=== PATIENT | female | born 1990 | race Caucasian/White ===

== ENCOUNTER 2017-06-12 19:30 | Inpatient (IN) | payer MEDICAID ==
[2017-06-12 20:13] LABS: APPEARANCE,URINE CLEAR; BILIRUBIN,URINE NEGATIVE (NEGATIVE); GLUCOSE, URINE NEGATIVE (NEGATIVE); KETONES,URINE NEGATIVE (NEGATIVE); LEUKOCYTE ESTERASE,URINE NEGATIVE (NEGATIVE); NITRITE,URINE NEGATIVE (NEGATIVE); PROTEIN,URINE NEGATIVE (NEGATIVE); URINE SPECIFIC GRAVITY 1.015; UROBILINOGEN,URINE NEGATIVE mg/dL (<2.0)
[2017-06-12 20:14] LABS: ABSOLUTE EOSINOPHILS # (AUTO) 0.1 10^3/uL (0.0-0.6); ABSOLUTE MONOCYTES (AUTO) 0.7 10^3/uL (0.1-1.4); ABSOLUTE NEUT (AUTO) 5.7 10^3/uL (1.7-8.2); BASOPHILS % (AUTO) 0.3 % (0-2); EOSINOPHILS % (AUTO) 0.8 % (0-6); HEMATOCRIT 36.5 % (36.0-47.0); HGB HCT DIFFERENCE -0.5; LYMPHOCYTES % (AUTO) 24.1 % (13-45); MEAN CORPUSCULAR HEMOGLOBIN 26.3 pg (27.0-33.4); MEAN CORPUSCULAR HGB CONC 32.8 g/dL (32.0-36.0); MEAN CORPUSCULAR VOLUME 80 fl (80-97); RED BLOOD COUNT 4.55 10^6/uL (3.72-5.28); RED CELL DISTRIBUTION WIDTH 18.3 % (11.5-14.0); SEGMENTED NEUTROPHILS % (AUTO) 66.8 % (42-78); WHITE BLOOD COUNT 8.5 10^3/uL (4.0-10.5)
[2017-06-12 20:28] LABS: URINE BARBITURATES SCREEN NEGATIVE; URINE METHADONE SCREEN NEGATIVE; URINE OPIATES LOW NEGATIVE; URINE PHENCYCLIDINE SCREEN NEGATIVE
[2017-06-12] MEDS ORDERED: DINOPROSTONE 10 MG VAGINAL INSERT.SR PV PRN (20:38)
[2017-06-12] MEDS ORDERED: RINGERS SOLUTION,LACTATED 300 ML IV ONE (20:38)
[2017-06-12] MEDS ORDERED: DINOPROSTONE 10 MG VAGINAL INSERT.SR ONE (20:55)
[2017-06-12] MEDS: RINGERS SOLUTION,LACTATED 1,000 ML IV PRN (21:07)
[2017-06-13] MEDS: RINGERS SOLUTION,LACTATED 1,000 ML IV PRN ×4 (08:02→20:43)
--- NOTE | 2017-06-13 11:04 | L&D Progress Notes ---
PROGRESS NOTES Datetime Report Generated by CPN: 06/13/2017 11:04 PROGRESS NOTE Impression Other: IUP @ [id number] Procedures: Sterile Vag Exam Plan: Continue Present Management; Cervical Ripening Informed Consent Obtained: Induction of Labor; Risks, Benefits and Alternatives Discussed Vital Signs : Reviewed; Within Normal Limits Comment: S: pt. reports very mild hip pressure but no cramping or contractions. Reports +FM, denies LOF/bleeding O: cervidil out, vss, cervix as stated, no contractions A: IUP @ 39w6d IOL for GDM A2-stable P:minimal change after 12hrs of cervidil, attempted morgan bulb insertion unsuccessfully, will give po 50mcg cytotec. Reviewed plan with Dr. Mckeon who is in unit and agrees with poc. Pt. agrees to plan, asked questions and verbalized understanding. VAGINAL EXAM Dilatation: FT Effacement: LONG Station: -3 Contractions: NONE FETUS A Monitoring: External US Decelerations: None SIGNATURE SIGNATURE: [id number] Assignment: Lyla Mckeon MD Signature: with User ID: [email or web address] : with User ID: [email or web address]
[2017-06-13] MEDS ORDERED: MISOPROSTOL 0.1 MG TABLET ONE (11:45)
[2017-06-13] MEDS ORDERED: MISOPROSTOL 0.2 MG TABLET PO ONE (12:30)
--- NOTE | 2017-06-13 15:10 | L&D Progress Notes ---
PROGRESS NOTES Datetime Report Generated by CPN: 06/13/2017 15:10 PROGRESS NOTE Impression: Normal Progression of Labor; Reassuring Heart Rate Procedures: Sterile Vag Exam Plan: Induction; Cervical Ripening Informed Consent Obtained: Vaginal Delivery; Induction of Labor Vital Signs : Reviewed; Within Normal Limits Comment: Here for IOL due to A2GDM. Cooks catheter placed 80ml/80ml. cvx 1/50/-3. Continue with IOL. Anticipate . Pt desires epidural when approp. Does not desire at this time. VAGINAL EXAM Dilatation: 1 Effacement: 50 Station: -3 Contractions: irreg q 2-6 MEMBRANES Membranes: Intact FETUS A FHR - Baseline: 150 Monitoring: External US Variability: Moderate 6-25bpm Accelerations: 15X15 Decelerations: None FHR Category: Category I FETUS C SIGNATURE: [id number] Signature: with User ID: Justin
[2017-06-13] MEDS ORDERED: OXYTOCIN/NORMAL SALINE 20 UNIT/1,000 ML RTUINJ ONE (15:13)
[2017-06-13] MEDS ORDERED: OXYTOCIN/NORMAL SALINE 20 UNIT/1,000 ML RTUINJ IV PRN (15:21)
--- NOTE | 2017-06-13 18:55 | L&D Progress Notes ---
PROGRESS NOTES Datetime Report Generated by CPN: 06/13/2017 18:55 PROGRESS NOTE Impression: Normal Progression of Labor; Reassuring Heart Rate Procedures: Artificial ROM; Sterile Vag Exam Plan: Continue Present Management; Induction Informed Consent Obtained: Vaginal Delivery; Risks, Benefits and Alternatives Discussed Vital Signs : Reviewed; Within Normal Limits Comment: Cooks catheter placed previously and pt now acking for pain medication. FB in vagina and almost of of cervix. 4-5cm. Cooks removed. AROM performed. head asynclytic. Will try some position changes and then plan for epidural REassuring FWB. Anticipate VAGINAL EXAM Dilatation: 4 Effacement: 75 Station: -3 MEMBRANES Membranes: Ruptured Amniotic Fluid Color: Clear FETUS A FHR - Baseline: 155 Monitoring: External US Variability: Moderate 6-25bpm FHR Category: Category I FETUS C SIGNATURE: [id number] Signature: with User ID: Justin
[2017-06-13] MEDS ORDERED: BUPIVACAINE HCL 0.25 % INJ/PF (2.5 MG/1 ML) 30 ML VIAL ONE (19:19)
[2017-06-13] MEDS ORDERED: EPHEDRINE SULFATE INJ 50 MG/1 ML AMPULE ONE (19:19)
[2017-06-13] MEDS ORDERED: FENTANYL/BUPIVACAINE/NS/PF 200 MCG/100 ML RTUINJ EPI ONE (19:19)
[2017-06-13] MEDS ORDERED: BUPIVACAINE HCL 0.25 % INJ/PF (2.5 MG/1 ML) 30 ML VIAL INFIL ONE ×2 (19:53→19:59)
[2017-06-13] MEDS ORDERED: BENZOIN/ALOE VERA/STORAX/TOLU TINCTURE 60 ML TP PRN ×2 (19:53→19:59)
[2017-06-13] MEDS ORDERED: DIPHENHYDRAMINE HCL 50 MG/ML VIAL IM PRN ×2 (19:53→19:59)
[2017-06-13] MEDS ORDERED: EPHEDRINE SULFATE INJ 50 MG/1 ML AMPULE IV PRN ×2 (19:53→19:59)
[2017-06-13] MEDS ORDERED: EPHEDRINE SULFATE INJ 50 MG/1 ML AMPULE IV ONE (19:59)
[2017-06-13] MEDS ORDERED: FENTANYL/BUPIVACAINE/NS/PF 200 MCG/100 ML RTUINJ EPI PRN (19:59)
[2017-06-13] MEDS ORDERED: DEXTROSE 5%-LACTATED RINGERS 1,000 ML IV PRN (23:02)
[2017-06-14] MEDS ORDERED: FENTANYL/BUPIVACAINE/NS/PF 200 MCG/100 ML RTUINJ EPI ONE (06:11)
[2017-06-14] MEDS ORDERED: LIDOCAINE 2% INJ-PF (20 MG/ML) 10 ML AMPUL ONE (06:11)
[2017-06-14] MEDS: FENTANYL/BUPIVACAINE/NS/PF 200 MCG/100 ML RTUINJ EPI PRN ×2 (06:49→11:38)
[2017-06-14] MEDS ORDERED: OXYTOCIN/NORMAL SALINE 0 UNIT/0 ML RTUINJ ONE (07:22)
[2017-06-14] MEDS ORDERED: MISOPROSTOL 0.2 MG TABLET ONE (07:22)
[2017-06-14] MEDS ORDERED: LIDOCAINE 1% INJ-PF (10 MG/ML) 30 ML SDV ONE (07:22)
[2017-06-14] MEDS ORDERED: MEASLES,MUMPS&RUBELLA VACC/PF 0.5 ML VIAL SUBCUT PRN (09:07)
[2017-06-14] MEDS ORDERED: ACETAMINOPHEN WITH CODEINE #3 TABLET PO PRN ×2 (09:07)
[2017-06-14] MEDS ORDERED: DIPH/PERTUSS(ACELL)/TETANUS VAC/PF 0.5 ML SYR (>=10YO) IM PRN (09:07)
[2017-06-14] MEDS ORDERED: DIBUCAINE 1% OINTMENT 28 GM TP PRN (09:07)
[2017-06-14] MEDS ORDERED: BENZOCAINE/MENTHOL AEROSOL SPRAY 56 ML TOP PRN (09:07)
[2017-06-14] MEDS ORDERED: OXYTOCIN/NORMAL SALINE 20 UNIT/1,000 ML RTUINJ IV PRN (09:07)
[2017-06-14] MEDS ORDERED: ZOLPIDEM TARTRATE 5 MG TABLET PO PRN (09:07)
[2017-06-14] MEDS ORDERED: FERROUS SULFATE 325 MG TABLET PO SCH (10:00)
--- NOTE | 2017-06-14 11:02 | Admission Physical ---
Datetime Report Generated by CPN: 06/14/2017 11:01 CURRENT ADMISSION Chief Complaint: Scheduled Induction of Labor Indication for Induction: Maternal Diabetes Indication for Induction: Term, Intrauterine ; No Active Labor; Induction of Labor Admit Plan: Admit to Unit; Initiate Labor Induction Protocol ALLERGIES Medication Allergies: No Medication Allergies: No Known Allergies (06/12/2017) Medication Allergies: No Known Allergies (02/12/2013) Latex: No Latex Allergies Food Allergies: Gluten OBSTETRICAL HISTORY EDC: 06/14/2017 00:00 : 1 Para: 0 Term: 0 : 0 SAB: 0 IAB: 0 Ectopic: 0 Livin Cesareans: 0 VBACs: 0 Multiple Births: 0 Gestational Diabetes: Yes Rh Sensitization: No Incompetent Cervix: No JULIAN: No Infertility: No ART Treatment: No Uterine Anomaly: No IUGR: No Hx Previous C/S: No Macrosomia: No Hx Loss/Stillborn: No PIH: No Hx : No Placenta Previa/Abruption: No Depression/PP Depression: No PTL/PROM: No Post Hemorrhage: No Current Procedures: Ultrasound; NST Obstetrical History Comments: G1-Current SEE RECORDS Alcohol: No Marijuana : No Cocaine: No Other Illicit Drugs: No Cigarettes: Never Smoker. [id number] MEDICAL HISTORY Diabetes: Yes Diabetes Type: Gestational Diabetes Blood Transfusion: No Pulmonary Disease (Asthma, TB): No Breast Disease: No Hypertension: Yes Medical Office Technologist Surgery: No Heart Disease: No Hosp/Surgery: Yes Autoimmune Disorder: No Anesthetic Complications: No Kidney Disease: No Abnormal Pap Smear: No Neuro/Epilepsy: No Psychiatric Disorders: No Other Medical Diseases: No Hepatitis/Liver Disease: No Significant Family History: No Varicosities/Phlebitis: No Trauma/Violence : No Thyroid Dysfunction: No Medical History Comments: Hx of HTN prior to this ; anemia; Gluten allergy; Depression; Back surgery-2011 INFECTIOUS HISTORY Gonorrhea: No Genital Herpes: No Chlamydia: No Tuberculosis: No Syphilis: No Hepatitis: No HIV/AIDS Exposure: No Rash or Viral Illness: No HPV: No PHYSICAL EXAM General: Normal HEENT: Normal Neurologic: Normal Thyroid: Normal Heart: Normal Lungs: Normal Breast: Deferred Back: Normal Abdomen: Normal Genitourinary Exam: Normal Extremities: Normal DTRs: Normal Pelvic Type: Adequate VAGINAL EXAM Dilatation: 4 Dilatation: 1 Dilatation: FT Effacement: 75 Effacement: 50 Effacement: LONG Station: -3 Station: -3 Station: -3 Contraction Comments: irreg q 2-6 Contraction Comments: NONE MEMBRANES Membranes: Ruptured Membranes: Intact Amniotic Fluid Color: Clear FETUS A EGA: 39.6 PLANS FOR LABOR AND DELIVERY Labor and Delivery: None Pain Management: Epidural Feeding Preference: Formula Benefit of Breast Feed Discussed: Yes Circumcision: Yes INFORMED CONSENT Informed Consent Obtained: Vaginal Delivery; Risks, Benefits and Alternatives Discussed Informed Consent Obtained: Vaginal Delivery; Induction of Labor Informed Consent Obtained: Induction of Labor; Risks, Benefits and Alternatives Discussed Signature: with User ID: [email or web address]
[2017-06-14] MEDS: PRENATAL VITAMIN W DHA CAPSULE PO SCH (11:46)
[2017-06-14] MEDS: SENNOSIDES/DOCUSATE 8.6-50 MG 1 EACH TABLET PO SCH (11:46)
[2017-06-14] MEDS: DOCUSATE SODIUM 100 MG CAPSULE PO SCH ×2 (11:47→17:46)
[2017-06-14] MEDS: IBUPROFEN 800 MG TABLET PO SCH ×2 (13:43→22:14)
--- NOTE | 2017-06-14 15:00 | PDOC DISCHARGE SUMMARY ---
Final Diagnosis - Final Diagnosis (1) Celiac disease Is this a current diagnosis for this admission?: Yes (2) Gestational diabetes mellitus (GDM) Is this a current diagnosis for this admission?: Yes (3) Spontaneous vaginal delivery Is this a current diagnosis for this admission?: Yes Discharge Data - Discharge Medication Home Medications: Vit/Iron Fum/Folic AC [ Tablet] 1 each PO DAILY 06/12/17 Docusate Sodium [Colace 100 mg Capsule] 100 mg PO BID #60 capsule 06/14/17 Ibuprofen [Motrin 800 mg Tablet] 800 mg PO Q8 #60 tablet 06/14/17 Gestational Age: 41.1 Reason(s) for Admission: Induction of Labor, Gestional Diabetes Procedures: NST Intrapartum Procedure(s): Spontaneous Vaginal Delivery - Data Baby 1 Male at 1 minute: 9 at 5 minutes: 9 Weight: 3.515 kg - Diagnosis Test Laboratory: Temp Pulse Resp BP Pulse Ox 98.3 F 109 H 18 129/82 H 97 06/14/17 11:45 06/14/17 11:45 06/14/17 11:45 06/14/17 11:45 06/14/17 11:45 06/12/17 06/12/17 19:40 19:50 RBC 4.55 Hgb 12.0 Hct 36.5 Urine Opiates Screen NEGATIVE - Discharge information/Instructions Discharge Activity: Activity As Tolerated, Pelvic Rest, No tub bath Discharge Diet: Regular Disposition: HOME, SELF-CARE Follow up with: [facility] in: 4, Weeks
[2017-06-15] MEDS: IBUPROFEN 800 MG TABLET PO SCH ×3 (06:28→21:37)
--- NOTE | 2017-06-15 07:53 | Delivery Summary ---
Del Sum A-C Datetime Report Generated by CPN: 06/15/2017 07:52 DELIVERY PERSONNEL DELIVERY PERSONNEL: [id number] Delivery Doctor:: Tabatha Marquez CNM Labor and Delivery Nurse:: Yaritza Lantigua RN Nursery Nurse:: GLORY HINKLE Tech/CONGRESSIONAL REPRESENTATIVE: NELLI MoranA II MATERNAL INFORMATION Delivery Anesthesia: Epidural Medications After Delivery: Pitocin Bolus-Please Comment; Pitocin Drip 20 Units/1000ml NSS Estimated Blood Loss (ml): 250 Maternal Complications: None Provider Comments: of viable male over intact perineium, head, shoulder and body delivered without difficulty, infant with spontaneous cry and respirations to maternal abdomen, cord clamped X2, infant cut free by pts support person, skin to skin, spontaneous delivery of placenta via ji mechanism, appears intact, 3vc, vagina and perineum inspected, 1st degress lac note repaired as above, good hemostasis acheived with external fudnal massage and IV pitocin routine pp care, mother and infant in stable condition. LABOR SUMMARY EDC: 06/14/2017 00:00 No. Babies in Womb: 1 Attempted: No Labor Anesthesia: Epidural LABOR INFORMATION Reason for Induction: Maternal Diabetes Onset of Labor: 06/14/2017 18:00 Complete Dilatation: 06/14/2017 07:15 Cervical Ripening Agents: Cervidil; Weller Balloon; Cytotec @ Oxytocin: Induction Group B Beta Strep: Negative Antibiotics # of Doses: 0 Steroids Given: None Reason Steroids Not Administered: Not Applicable MEMBRANES Membranes Rupture Method: Artificial Rupture of Membranes: 06/13/2017 18:48 Length of Rupture (hr): 13.88 Amniotic Fluid Color: Clear Amniotic Fluid Amount: Small Amniotic Fluid Odor: Normal STAGES OF LABOR Stage 1 hr: -10 Stage 1 min: -45 Stage 2 hr: 1 Stage 2 min: 26 Stage 3 hr: 0 Stage 3 min: 4 Total Time in Labor hr: -9 Total Time in Labor min: -15 VAGINAL DELIVERY Episiotomy: None Laceration Extension #1: First Degree Other Laceration: bilateral labial Laceration Repair: Not Applicable Laceration Repair Note: repaired with 2 single sutures with 3-0 chromic using epidural anesthesia Sponge Count Correct: N/A Sharps Count Correct: N/A CSECTION DELIVERY Primary Indication: N/A Secondary Indication: N/A Labor: N/A Elective: N/A CSection Incision: N/A BABY A INFORMATION Infant Delivery Date/Time: 06/14/2017 08:41 Infant Delivery Date/Time: 06/14/2017 08:41 Method of Delivery: Vaginal Born in Route : No : N/A Forceps: N/A Vacuum Extraction: N/A Shoulder Dystocia : No PRESENTATION/POSITION BABY A Presentation: Cephalic Presentation: Cephalic Presentation: Cephalic Cephalic Presentation: Vertex Breech Presentation: N/A PLACENTA INFORMATION BABY A Placenta Delivery Time : 06/14/2017 08:45 Placenta Method of Delivery: Spontaneous Placenta Status: Delivered SCORES BABY A Heart Rate 1 min: >100 bpm Resp Effort 1 min: Good Cry Reflex Irritability 1 min: Cough or Sneeze or Pulls Away Muscle Tone 1 min: Active Motion Color 1 min: Body [place], Extremities Blue Resuscitation Effort 1 min: Tactile Stimulation SCORE 1 MIN: 9 Heart Rate 5 min: >100 bpm Resp Effort 5 min: Good Cry Reflex Irritability 5 min: Cough or Sneeze or Pulls Away Muscle Tone 5 min: Active Motion Color 5 min: Body [place], Extremities Blue Resuscitation Effort 5 min: N/A SCORE 5 MIN: 9 INFORMATION BABY A Gestational Age at Delivery: 40.0 Gestational Status: Full Term- 39- 40.6 Weeks Infant Outcome : Liveborn Infant Outcome : Liveborn Infant Condition : Stable Condition : Stable Sex: Male Infant Sex: Male IDENTIFICATION BABY A Verification Date/Time: 06/14/2017 08:48 ID Band Number: [id number] Mother's Name Verified: Yes Infant RN Verifying : Brandon Keith, RN, and RMaxx Neal, RN WEIGHT/LENGTH BABY A Birthweight (gm): 3510 Weight (lb): 7 Weight (oz): 12 Infant Length (in): 21.00 Length (cm): 53.34 CORD INFORMATION BABY A No. Cord Vessels: 3 Nuchal Cord : N/A Cord Blood Taken: Yes-For Storage (Mom's Blood type +) Infant Suction: None ASSESSMENT BABY A Infant Complications: Multiple Variable Decels Infant Complications- Other: terminal meconium Physical Findings at Delivery: Caput Succedaneum; Molding of the Head Skin to Skin: Yes Skin to Skin: Yes Skin to Skin Time (min): 60 BABY B INFORMATION : N/A SIGNATURES Assignment: Jesus Manuel Mayen MD Signature: with User ID: [email or web address] : with User ID: [email or web address]
[2017-06-15] MEDS: DOCUSATE SODIUM 100 MG CAPSULE PO SCH ×2 (09:36→18:10)
[2017-06-15] MEDS: PRENATAL VITAMIN W DHA CAPSULE PO SCH (09:36)
[2017-06-15] MEDS: SENNOSIDES/DOCUSATE 8.6-50 MG 1 EACH TABLET PO SCH (09:36)
[2017-06-15] MEDS ORDERED: INFLUENZA ADLT QUAD (36MOS+) 2017-18 VAC 0.5 ML SYR IM PRN (11:43)
[2017-06-15 12:41] LABS: ABSOLUTE EOSINOPHILS # (AUTO) 0.2 10^3/uL (0.0-0.6); ABSOLUTE LYMPHOCYTES (AUTO) 2.1 10^3/uL (0.5-4.7); ABSOLUTE MONOCYTES (AUTO) 0.6 10^3/uL (0.1-1.4); ABSOLUTE NEUT (AUTO) 8.1 10^3/uL (1.7-8.2); BASOPHILS % (AUTO) 0.2 % (0-2); EOSINOPHILS % (AUTO) 1.8 % (0-6); HEMATOCRIT 32.2 % (36.0-47.0); HEMOGLOBIN 10.5 g/dL (12.0-15.5); HGB HCT DIFFERENCE -0.7; LYMPHOCYTES % (AUTO) 19.3 % (13-45); MEAN CORPUSCULAR HEMOGLOBIN 26.4 pg (27.0-33.4); MEAN CORPUSCULAR HGB CONC 32.5 g/dL (32.0-36.0); MEAN CORPUSCULAR VOLUME 81 fl (80-97); MONOCYTES % (AUTO) 5.5 % (3-13); RED BLOOD COUNT 3.96 10^6/uL (3.72-5.28); SEGMENTED NEUTROPHILS % (AUTO) 73.2 % (42-78)
--- NOTE | 2017-06-15 14:31 | PDOC PROGRESS REPORT ---
Subjective-OB Subjective: Post Delivery Day: 27 year old. Denies any needs at this time. Pt doing well, no concerns. She reports light bleeding, regular diet and voiding without difficulty. Physical Exam (OB) Vital Signs: Temp Pulse Resp BP Pulse Ox 98.0 F 96 15 116/78 98 06/15/17 08:19 06/15/17 08:19 06/15/17 08:19 06/15/17 08:19 06/15/17 08:19 Intake & Output 06/14/17 06/15/17 06/16/17 06:59 06:59 06:59 Intake Total 10 Balance 10 Baby 1 Male 3.515 kg - Lochia Lochia Amount: Small 10-25 ml Lochia Color: Rubra/Red - Abdomen Description: Soft Hernia Present: No Fundal Description: Firm, Midline Fundal Height: u/u - u/2 Objective-Diagnostic Laboratory: 06/15/17 12:14 06/12/17 19:50 06/15/17 12:14 WBC 11.0 H RBC 3.96 Hgb 10.5 L Hct 32.2 L MCV 81 MCH 26.4 L MCHC 32.5 RDW 19.0 H Plt Count 257 Seg Neutrophils % 73.2 Lymphocytes % 19.3 Monocytes % 5.5 Eosinophils % 1.8 Basophils % 0.2 Absolute Neutrophils 8.1 Absolute Lymphocytes 2.1 Absolute Monocytes 0.6 Absolute Eosinophils 0.2 Absolute Basophils 0.0 Assessment and Plan(PN) - Assessment and Plan (1) Gestational diabetes mellitus (GDM) Qualifiers: Gestational diabetes mellitus control: diet-controlled Trimester: unspecified trimester Qualified Code(s): O24.410 - Gestational diabetes mellitus in , diet controlled Is this a current diagnosis for this admission?: Yes (2) Spontaneous vaginal delivery Is this a current diagnosis for this admission?: Yes - Time Spent with Patient Time with patient: Less than 15 minutes Medications reviewed and adjusted accordingly: Yes - Disposition Anticipated Discharge: Home Within: within 24 hours
[2017-06-16] MEDS: IBUPROFEN 800 MG TABLET PO SCH (05:37)
--- NOTE | 2017-06-16 09:48 | PDOC PROGRESS REPORT ---
Subjective-OB Subjective: Post Delivery Day: 27 year old. Denies any needs at this time Doing well, ready to go home, bottle feeding, voiding Physical Exam (OB) Vital Signs: Temp Pulse Resp BP Pulse Ox 98.3 F 86 15 102/60 100 06/16/17 07:38 06/16/17 07:38 06/16/17 07:38 06/16/17 07:38 06/16/17 07:38 Intake & Output 06/15/17 06/16/17 06/17/17 06:59 06:59 06:59 Intake Total 10 Balance 10 Baby 1 Male 3.515 kg - PIH/Pre-Eclampsia DTR's: 1 + Clonus: Negative Headache: Absent Epigastric Pain: No Visual Changes: No - Lochia Lochia Amount: Scant < 10 ml Lochia Color: Rubra/Red - Abdomen Description: Soft, Round Hernia Present: No Fundal Description: Firm, Midline Fundal Height: u/u - u/2 Objective-Diagnostic Laboratory: 06/15/17 12:14 06/12/17 19:50 06/15/17 12:14 WBC 11.0 H RBC 3.96 Hgb 10.5 L Hct 32.2 L MCV 81 MCH 26.4 L MCHC 32.5 RDW 19.0 H Plt Count 257 Seg Neutrophils % 73.2 Lymphocytes % 19.3 Monocytes % 5.5 Eosinophils % 1.8 Basophils % 0.2 Absolute Neutrophils 8.1 Absolute Lymphocytes 2.1 Absolute Monocytes 0.6 Absolute Eosinophils 0.2 Absolute Basophils 0.0 Assessment and Plan(PN) - Assessment and Plan (1) Spontaneous vaginal delivery Is this a current diagnosis for this admission?: Yes (2) Celiac disease Is this a current diagnosis for this admission?: Yes (3) Gestational diabetes mellitus (GDM) Qualifiers: Gestational diabetes mellitus control: diet-controlled Trimester: unspecified trimester Qualified Code(s): O24.410 - Gestational diabetes mellitus in , diet controlled Is this a current diagnosis for this admission?: Yes - Time Spent with Patient Medications reviewed and adjusted accordingly: Yes - Disposition Anticipated Discharge: Home Within: Other - home today
--- NOTE | 2017-06-16 09:51 | PDOC DISCHARGE SUMMARY ---
Final Diagnosis Discharge Date: 06/16/17 - Final Diagnosis (1) Spontaneous vaginal delivery Is this a current diagnosis for this admission?: Yes (2) Celiac disease Is this a current diagnosis for this admission?: Yes (3) Gestational diabetes mellitus (GDM) Is this a current diagnosis for this admission?: Yes Discharge Data - Discharge Medication Home Medications: Vit/Iron Fum/Folic AC [ Tablet] 1 each PO DAILY 06/12/17 Docusate Sodium [Colace 100 mg Capsule] 100 mg PO BID #60 capsule 06/14/17 Ibuprofen [Motrin 800 mg Tablet] 800 mg PO Q8 #60 tablet 06/14/17 Gestational Age: 40 Reason(s) for Admission: Onset of Labor, Induction of Labor, Gestional Diabetes Procedures: NST, Ultrasound Intrapartum Procedure(s): Spontaneous Vaginal Delivery Complication(s): Laceration-Labial Laceration-Degree: 1st - Data Baby 1 Male at 1 minute: 9 at 5 minutes: 9 Weight: 3.515 kg Home with Mother: Yes Complications: No - Diagnosis Test Laboratory: Temp Pulse Resp BP Pulse Ox 98.3 F 86 15 102/60 100 06/16/17 07:38 06/16/17 07:38 06/16/17 07:38 06/16/17 07:38 06/16/17 07:38 06/12/17 06/12/17 06/15/17 19:40 19:50 12:14 RBC 4.55 3.96 Hgb 12.0 10.5 L Hct 36.5 32.2 L Urine Opiates Screen NEGATIVE - Discharge information/Instructions Discharge Activity: Activity As Tolerated, No Lifting Over 10 Pounds, Pelvic Rest, No tub bath Discharge Diet: As Tolerated, Regular Disposition: HOME, SELF-CARE Follow up with: [facility] in: 4, Weeks
[2017-06-16] MEDS: DOCUSATE SODIUM 100 MG CAPSULE PO SCH (10:03)
[2017-06-16] MEDS: PRENATAL VITAMIN W DHA CAPSULE PO SCH (10:04)
[2017-06-16] MEDS: SENNOSIDES/DOCUSATE 8.6-50 MG 1 EACH TABLET PO SCH (10:04)
[2017-06-16 10:51] VITALS: BP 107/70
== END 2017-06-16 12:35 | disposition home or self-care (01) | DRG 775 ==
LOC: LR 19:30 → 2S 06-14 11:00
PROVIDERS: ADMIT Obstetrics & Gynecology Gynecology; ATTEND Obstetrics & Gynecology Gynecology
PROC: 4A1HXCZ Monitoring of Products of Conception, Cardiac Rate, External Approach (ICD-10-PCS; 2017-06-12)
PROC: 10907ZC Drainage of Amniotic Fluid, Therapeutic from Products of Conception, Via Natural or Artificial Opening (ICD-10-PCS; 2017-06-13)
PROC: 0U7C7ZZ Dilation of Cervix, Via Natural or Artificial Opening (ICD-10-PCS; 2017-06-13)
PROC: 10E0XZZ Delivery of Products of Conception, External Approach (ICD-10-PCS; principal; 2017-06-14)
PROC: 0HQ9XZZ Repair Perineum Skin, External Approach (ICD-10-PCS; 2017-06-14)
PROC: 10E0XZZ Delivery of Products of Conception, External Approach (ICD-10-PCS; 2017-06-14)
PROC: 0HQ9XZZ Repair Perineum Skin, External Approach (ICD-10-PCS; 2017-06-14)
PROC: 3E0234Z Introduction of Serum, Toxoid and Vaccine into Muscle, Percutaneous Approach (ICD-10-PCS; 2017-06-16)
DX: O24.420 Gestational diabetes mellitus in childbirth, diet controlled (principal); O76 Abnormality in fetal heart rate and rhythm complicating labor and delivery; O77.0 Labor and delivery complicated by meconium in amniotic fluid; O70.0 First degree perineal laceration during delivery; K90.0 Celiac disease; O16.4 Unspecified maternal hypertension, complicating childbirth; O99.02 Anemia complicating childbirth; O99.62 Diseases of the digestive system complicating childbirth; Z37.0 Single live birth; Z3A.40 40 weeks gestation of pregnancy; D64.9 Anemia, unspecified; Z23 Encounter for immunization; Z91.018 Allergy to other foods
CPT/HCPCS: 36415; 80307; 81005; 82947; 82962; 85025; 86592; 86850; 86900; 86901; 90715; C1726; J2590; J3490

== ENCOUNTER → 2019-01-22 | Outpatient (CLI) | payer MEDICAID ==
[2019-01-22 17:56] LABS: ABSOLUTE EOSINOPHILS # (AUTO) 0.1 10^3/uL (0.0-0.6); ABSOLUTE LYMPHOCYTES (AUTO) 2.3 10^3/uL (0.5-4.7); ABSOLUTE MONOCYTES (AUTO) 0.6 10^3/uL (0.1-1.4); ABSOLUTE NEUT (AUTO) 5.8 10^3/uL (1.7-8.2); BASOPHILS % (AUTO) 0.3 % (0-2); EOSINOPHILS % (AUTO) 0.8 % (0-6); HEMATOCRIT 26.1 % (36.0-47.0); HEMOGLOBIN 8.1 g/dL (12.0-15.5); LYMPHOCYTES % (AUTO) 25.7 % (13-45); MEAN CORPUSCULAR HEMOGLOBIN 21.2 pg (27.0-33.4); MEAN CORPUSCULAR HGB CONC 31.2 g/dL (32.0-36.0); MEAN CORPUSCULAR VOLUME 68 fl (80-97); MONOCYTES % (AUTO) 6.6 % (3-13); PLATELET COUNT 267 10^3/uL (150-450); RED BLOOD COUNT 3.84 10^6/uL (3.72-5.28); RED CELL DISTRIBUTION WIDTH 17.6 % (11.5-14.0); SEGMENTED NEUTROPHILS % (AUTO) 66.6 % (42-78); TOTAL CELLS COUNTED % (AUTO) 100 %; WHITE BLOOD COUNT 8.8 10^3/uL (4.0-10.5)
[2019-01-22 18:53] LABS: FERRITIN 8.96 ng/mL (6.2-137.0)
[2019-01-22 19:29] LABS: IRON(TIBC) < 10.1 ug/dL (37-170)
== END ==
LOC: OD 16:32
PROVIDERS: ATTEND Obstetrics & Gynecology
DX: D64.9 Anemia, unspecified (principal); O99.013 Anemia complicating pregnancy, third trimester; Z3A.00 Weeks of gestation of pregnancy not specified
CPT/HCPCS: 36415; 82607; 82728; 82746; 83540; 83550; 85025

== ENCOUNTER 2019-02-19 14:25 | Inpatient (IN) | payer MEDICAID ==
[~2019-02-19 14:25] MED LIST: DEXAMETHASONE SOD PHOSPHATE INJ 4 MG/1 ML VIAL ONE; KETOROLAC TROMETHAMINE 60 MG/2 ML SDV ONE; METOCLOPRAMIDE HCL INJ/PF 10 MG/2 ML SDV ONE; ONDANSETRON HCL INJ/PF 4 MG/2 ML SDV ONE; PHENYLEPHRINE HCL INJ/PF 10 MG/1 ML SDV ONE; ROCURONIUM BROMIDE INJ 50 MG/5 ML VIAL IV ONE; SUCCINYLCHOLINE CHLORIDE INJ 200 MG/10 ML VIAL ONE
[2019-02-19] MEDS ORDERED: CEFAZOLIN 2 GM/D5W RTU 50 ML IV ONE (14:45)
[2019-02-19] MEDS ORDERED: RINGERS SOLUTION,LACTATED 1,000 ML IV ONE (14:45)
[2019-02-19] MEDS ORDERED: RINGERS SOLUTION,LACTATED 1,000 ML IV PRN ×2 (14:45→17:58)
[2019-02-19] MEDS ORDERED: CEFAZOLIN SODIUM 2 GM in DEXTROSE 5%-WATER 100 ML IV ONE (15:15)
[2019-02-19] MEDS ORDERED: EPHEDRINE SULFATE INJ 50 MG/1 ML AMPULE ONE (16:20)
[2019-02-19] MEDS ORDERED: OXYTOCIN 10 UNIT/ML VIAL ONE (16:21)
[2019-02-19] MEDS ORDERED: MIDAZOLAM 2 MG/2 ML INJ ONE (16:21)
[2019-02-19] MEDS ORDERED: FENTANYL CITRATE INJ/PF 100 MCG/2 ML AMPUL ONE ×2 (16:21→18:16)
[2019-02-19] MEDS ORDERED: CEFAZOLIN 1 GM/D5W RTU 2 GM/100 ML RTUPB IV ONE (16:47)
[2019-02-19] MEDS ORDERED: CITRIC ACID/SODIUM CITRATE ORAL SOLN 15 ML UDCUP ONE (16:47)
--- NOTE | 2019-02-19 16:49 | Admission Physical ---
Datetime Report Generated by CPN: 02/19/2019 16:48 CURRENT ADMISSION Chief Complaint: Uterine Contractions Chief Complaint Other: transverse lie Indication for Induction: Not Applicable Admit Impression : Term, Intrauterine ; Active Labor Admit Plan: Admit to Unit; Initiate Section Protocol ALLERGIES Medication Allergies: No Medication Allergies: No Known Allergies (06/12/2017) Latex: No Latex Allergies OBSTETRICAL HISTORY EDC: 02/18/2019 00:00 : 2 Para: 1 Livin SEE RECORDS Alcohol: No Marijuana : No Cocaine: No Other Illicit Drugs: No Cigarettes: Never Smoker. [id number] PHYSICAL EXAM General: Normal HEENT: Normal Neurologic: Normal Thyroid: Normal Heart: Normal Lungs: Normal Breast: Deferred Back: Normal Abdomen: Normal Genitourinary Exam: Normal Extremities: Normal DTRs: Normal Pelvic Type: Adequate Vital Signs: Reviewed VAGINAL EXAM Dilatation: 4 Effacement: 100 Station: 0 MEMBRANES Pooling: Positive Membranes: Ruptured FETUS A EGA: 40.1 FHR- Baseline: 140 Variability: Moderate 6-25bpm FHR Category: Category I Presentation: Transverse Admit Comment: proceed with a c section INFORMED CONSENT Signature: with User ID: [email or web address]
[2019-02-19] MEDS ORDERED: MORPHINE SULFATE 10 MG/ML INJ IV PRN (17:16)
[2019-02-19] MEDS ORDERED: DIPHENHYDRAMINE HCL 50 MG/ML VIAL IV PRN (17:16)
[2019-02-19] MEDS ORDERED: MEPERIDINE HCL/PF INJ 25 MG/1 ML DISP.SYRIN IV PRN (17:16)
[2019-02-19] MEDS ORDERED: FENTANYL CITRATE INJ/PF 100 MCG/2 ML AMPUL IV PRN ×3 (17:16)
[2019-02-19] MEDS ORDERED: ONDANSETRON HCL INJ/PF 4 MG/2 ML SDV IV PRN (17:16)
[2019-02-19] MEDS ORDERED: PROMETHAZINE HCL INJ 25 MG/1 ML VIAL IV PRN ×3 (17:16→17:58)
[2019-02-19 17:35] LABS: HEMATOCRIT 26.6 % (36.0-47.0); HEMOGLOBIN 8.2 g/dL (12.0-15.5); MEAN CORPUSCULAR HEMOGLOBIN 20.6 pg (27.0-33.4); MEAN CORPUSCULAR HGB CONC 30.6 g/dL (32.0-36.0); MEAN CORPUSCULAR VOLUME 67 fl (80-97); PLATELET COUNT 300 10^3/uL (150-450); RED BLOOD COUNT 3.97 10^6/uL (3.72-5.28); RED CELL DISTRIBUTION WIDTH 19.1 % (11.5-14.0); WHITE BLOOD COUNT 12.1 10^3/uL (4.0-10.5)
[2019-02-19 17:48] LABS: ABSOLUTE LYMPHOCYTES# (MANUAL) 1.6 10^3/uL (0.5-4.7); ABSOLUTE MONOCYTES # (MANUAL) 0.4 10^3/uL (0.1-1.4); BASOPHILS % (MANUAL) 1 % (0-2); EOSINOPHILS % (MANUAL) 0 % (0-6); LYMPHOCYTES % (MANUAL) 13 % (13-45); MONOCYTES % (MANUAL) 3 % (3-13); NUCLEATED RED BLOOD CELLS 2 /100 WBC (0); SEGMENTED NEUTROPHILS % (MAN) 83 % (42-78); TOTAL CELLS COUNTED 100
[2019-02-19 17:50] LABS: ANISOCYTOSIS 2+; HYPOCHROMASIA 1+; OVALOCYTES SLIGHT; POIKILOCYTOSIS 1+; POLYCHROMASIA 1+; SCHISTOCYTES SLIGHT; TOXIC GRANULATION 1+
[2019-02-19 17:51] LABS: PLATELET COMMENT ADEQUATE; PLATELET LARGE PRESENT; TEAR DROP CELLS SLIGHT
[2019-02-19] MEDS ORDERED: ACETAMINOPHEN 325 MG TABLET PO PRN (17:58)
[2019-02-19] MEDS ORDERED: MEASLES,MUMPS&RUBELLA VACC/PF 0.5 ML VIAL SUBCUT PRN (17:58)
[2019-02-19] MEDS ORDERED: HYDROMORPHONE HCL INJ/PF 2 MG/ML AMPULE IV PRN (17:58)
[2019-02-19] MEDS ORDERED: OXYTOCIN/NORMAL SALINE 1,000 ML IV PRN (17:58)
[2019-02-19] MEDS ORDERED: DIPH/PERTUSS(ACELL)/TETANUS VAC/PF 0.5 ML SYR (>=10YO) IM PRN (17:58)
[2019-02-19] MEDS ORDERED: ACETAMINOPHEN 100 ML IV PRN (17:58)
[2019-02-19] MEDS ORDERED: OXYCODONE-ACETAMINOPHEN 5-325 MG TABLET PO PRN (17:58)
[2019-02-19] MEDS ORDERED: SIMETHICONE 80 MG TAB.CHEW PO PRN (17:58)
[2019-02-19] MEDS ORDERED: ACETAMINOPHEN 1,000 MG/100 ML RTUPB IV ONE (18:02)
[2019-02-19] MEDS ORDERED: HYDROMORPHONE HCL INJ/PF 2 MG/ML AMPULE ONE (18:02)
--- NOTE | 2019-02-19 18:07 | Operative Report ---
Operative Report DATE OF SURGERY: 02/19/19 PREOPERATIVE DIAGNOSIS: Patient in labor with rupture membranes non-vertex pres entation POSTOPERATIVE DIAGNOSIS: Same with presentation of double footling breech and one hand OPERATION: Primary classical done because of the low uterine segment was not well-developed SURGEON: EMMY CAMPOVERDE ANESTHESIA: GA TISSUE REMOVED OR ALTERED: Placenta COMPLICATIONS: None ESTIMATED BLOOD LOSS: 500 cc INTRAOPERATIVE FINDINGS: Viable baby with double footling breech and hand pres entation PROCEDURE: Patient was taken to the OR and placed in supine position. She is prepared and draped in sterile fashion. Weller was placed for drainage of the bladder. General anesthesia was induced. Low transverse incision was made and carried down the level of the fascia. The fascial incision was made with knife and extended bilaterally with curved Landaverde scissors. The fascia was off the rectus muscles using sharp and blunt dissection. The rectus muscles are in the midline. The peritoneum was entered without incident. Bladder blade was placed in uterine segment was identified. The low uterine segment was not developed and was quite narrow which would not allow delivery of the baby. Therefore a vertical classical was made. This was extended with the bandage scissors. The baby was delivered with some fundal pressure. The presenting parts were both feet and hand. Mouth and nose were suctioned free. The cord is doubly clamped and cut. Baby is passed off to the airport guide in attendance. The placenta was manually extracted with trailing membranes. The uterus was externalized wrapped in a moist lap sponge. Uterine contents wiped free. The uterus was closed with a running locked 0 chromic suture. The myometrium was closed with interrupted 0 chromic sutures. The remainder of the incision was closed with a running 0 chromic suture. This closed the uterus well and good hemostasis was noted. Interceed was placed over top of the incision. The pelvis was irrigated and suctioned free of fluid the uterus was replaced in the abdomen. The abdominal wall peritoneum was closed with running 2-0 chromic stitch. Fascia was closed with a running 0 Vicryl in 2 segments. Lul's layer was brought together with 0 plain gut stitch and the skin was closed with running subcuticular 4-0 undyed Vicryl stitch. The wound was dressed mother and baby did well.
--- NOTE | 2019-02-19 19:43 | Delivery Summary ---
Del Sum A-C Datetime Report Generated by CPN: 02/19/2019 19:43 DELIVERY PERSONNEL DELIVERY PERSONNEL: [id number] Delivery Doctor:: Jesus Manuel Mayen MD Anesthesiologist:: Chu Covington MD CLAIMS ADJUSTER CROP:: Jennifer Esquivel, CLAIMS ADJUSTER CROP Labor and Delivery Nurse:: Cheli Starks RN Public Safety Police:: Cheli Starks RN Nursery Nurse:: Winnie Barnes RN Experimental Preflight Mechanic/UPFITTER: Breanne Shore CST Experimental Preflight Mechanic/UPFITTER: Jillianaracely Stubbs, ST MATERNAL INFORMATION Delivery Anesthesia: General Medications After Delivery: Pitocin Bolus-Please Comment Meds After Delivery Comment: Pitocin 20 units in 1 L NS bolusing per order Estimated Blood Loss (ml): 550 Delivery QBL: 1400 Delivery QBL Comment: 300 in suction canister Maternal Complications: Other Complication Details: double footling breech with hand presentation LABOR SUMMARY EDC: 02/18/2019 00:00 No. Babies in Womb: 1 Attempted: No Labor Anesthesia: None LABOR INFORMATION Reason for Induction: Not Applicable Oxytocin: N/A Group B Beta Strep: negative Antibiotics # of Doses: 1 Antibiotics Time of Last Dose: 165 Name of Antibiotic Given: Ancef Steroids Given: None Reason Steroids Not Administered: Not Applicable MEMBRANES Membranes Rupture Method: Artificial Rupture of Membranes: 02/19/2019 17:00 Length of Rupture (hr): 0.03 Amniotic Fluid Color: Clear Amniotic Fluid Amount: Scant Amniotic Fluid Odor: Normal STAGES OF LABOR Stage 3 hr: 0 Stage 3 min: 1 VAGINAL DELIVERY Episiotomy: None Laceration #1: None Laceration Extension #1: N/A CSECTION DELIVERY Primary Indication: Other Other Primary Indication: breech/hamnd presentation Other Secondary Indication: oligohydramnios CSection Urgency: Emergency CSection Incidence: Primary Labor: Labor Elective: Nonelective CSection Incision: Lower Uterine Transverse BABY A INFORMATION Delivery Date/Time: 02/19/2019 17:02 Method of Delivery: Born in Route : No : N/A Forceps: N/A Vacuum Extraction: N/A Shoulder Dystocia : No PRESENTATION/POSITION BABY A Presentation: Unable to Assess Cephalic Presentation: N/A Breech Presentation: N/A PLACENTA INFORMATION BABY A Placenta Delivery Time : 02/19/2019 17:03 Placenta Method of Delivery: Expressed Placenta Status: Delivered SCORES BABY A Heart Rate 1 min: >100 bpm Resp Effort 1 min: Good Cry Reflex Irritability 1 min: Cough or Sneeze or Pulls Away Muscle Tone 1 min: Active Motion Color 1 min: Blue/Pale Resuscitation Effort 1 min: Tactile Stimulation SCORE 1 MIN: 8 Heart Rate 5 min: >100 bpm Resp Effort 5 min: Good Cry Reflex Irritability 5 min: Cough or Sneeze or Pulls Away Muscle Tone 5 min: Active Motion Color 5 min: Body [place], Extremities Blue SCORE 5 MIN: 9 INFANT INFORMATION BABY A Gestational Age at Delivery: 40.1 Gestational Status: Full Term- 39- 40.6 Weeks Outcome : Liveborn Condition : Stable Sex: Male IDENTIFICATION BABY A Verification Date/Time: 02/19/2019 17:11 ID Band Number: [id number] Mother's Name Verified: Yes Infant RN Verifying : Reji Starks, RN, C. [place], RN WEIGHT/LENGTH BABY A Infant Birthweight (gm): 3185 Weight (lb): 7 Weight (oz): 0 Length (in): 20.00 Infant Length (cm): 50.80 CORD INFORMATION BABY A No. Cord Vessels: 3 Infant Suction: Mouth; Nose ASSESSMENT BABY A Complications: Extended Tachycardia Physical Findings at Delivery: Within Normal Limits Respirations: Appears Normal Skin to Skin: No Care By: Shmuel Barnes, GLORY Transferred To: Nursery BABY B INFORMATION : N/A
[2019-02-19] MEDS ORDERED: PROPOFOL INJ 200 MG/20 ML VIAL IV ONE (20:12)
[2019-02-19 21:46] LABS: HEMATOCRIT 23.5 % (36.0-47.0); MEAN CORPUSCULAR HEMOGLOBIN 20.7 pg (27.0-33.4); MEAN CORPUSCULAR HGB CONC 30.7 g/dL (32.0-36.0); MEAN CORPUSCULAR VOLUME 67 fl (80-97); PLATELET COUNT 290 10^3/uL (150-450); RED CELL DISTRIBUTION WIDTH 19.5 % (11.5-14.0); WHITE BLOOD COUNT 21.3 10^3/uL (4.0-10.5)
[2019-02-19 21:50] LABS: HEMOGLOBIN 7.2 g/dL (12.0-15.5)
[2019-02-19] MEDS: KETOROLAC TROMETHAMINE INJ/PF 30 MG/1 ML SDV IV SCH (22:02)
[2019-02-19 22:11] LABS: ABSOLUTE LYMPHOCYTES# (MANUAL) 1.7 10^3/uL (0.5-4.7); ABSOLUTE MONOCYTES # (MANUAL) 0.9 10^3/uL (0.1-1.4); BAND NEUTROPHILS % (MANUAL) 6 % (3-5); BASOPHILS % (MANUAL) 0 % (0-2); EOSINOPHILS % (MANUAL) 0 % (0-6); LYMPHOCYTES % (MANUAL) 8 % (13-45); METAMYELOCYTES % (MANUAL) 2 % (0); MONOCYTES % (MANUAL) 4 % (3-13); SEGMENTED NEUTROPHILS % (MAN) 80 % (42-78); TOTAL CELLS COUNTED 100
[2019-02-19 22:12] LABS: ANISOCYTOSIS 2+; HYPOCHROMASIA 3+
[2019-02-19 22:13] LABS: PLATELET COMMENT ADEQUATE
[2019-02-20] MEDS: DOCUSATE SODIUM 100 MG CAPSULE PO SCH ×3 (01:48→18:01)
[2019-02-20 02:04] LABS: APPEARANCE,URINE CLEAR; BILIRUBIN,URINE NEGATIVE (NEGATIVE); COLOR,URINE STRAW; GLUCOSE, URINE >=500 mg/dL (NEGATIVE); KETONES,URINE NEGATIVE (NEGATIVE); LEUKOCYTE ESTERASE,URINE NEGATIVE (NEGATIVE); NITRITE,URINE NEGATIVE (NEGATIVE); PROTEIN,URINE NEGATIVE (NEGATIVE); URINE SPECIFIC GRAVITY 1.011; UROBILINOGEN,URINE NEGATIVE mg/dL (<2.0)
[2019-02-20 02:26] LABS: URINE AMPHETAMINES SCREEN NEGATIVE; URINE BARBITURATES SCREEN NEGATIVE; URINE BENZODIAZEPINES SCREEN UNCONFIRMED POSITIVE; URINE COCAINE SCREEN NEGATIVE; URINE MARIJUANA (THC) SCREEN NEGATIVE; URINE METHADONE SCREEN NEGATIVE; URINE PHENCYCLIDINE SCREEN NEGATIVE
[2019-02-20] MEDS: KETOROLAC TROMETHAMINE INJ/PF 30 MG/1 ML SDV IV SCH (05:11)
[2019-02-20 07:34] LABS: HEMATOCRIT 20.6 % (36.0-47.0); MEAN CORPUSCULAR HEMOGLOBIN 20.2 pg (27.0-33.4); MEAN CORPUSCULAR HGB CONC 30.1 g/dL (32.0-36.0); MEAN CORPUSCULAR VOLUME 67 fl (80-97); PLATELET COUNT 264 10^3/uL (150-450); RED BLOOD COUNT 3.07 10^6/uL (3.72-5.28); RED CELL DISTRIBUTION WIDTH 19.1 % (11.5-14.0); WHITE BLOOD COUNT 19.7 10^3/uL (4.0-10.5)
[2019-02-20 07:37] LABS: HEMOGLOBIN 6.2 g/dL (12.0-15.5)
[2019-02-20] MEDS ORDERED: DIPHENHYDRAMINE HCL 25 MG CAPSULE PO PRN (08:00)
[2019-02-20] MEDS ORDERED: ACETAMINOPHEN 325 MG TABLET PO PRN (08:00)
[2019-02-20] MEDS: PRENATAL VITAMIN W DHA CAPSULE PO SCH (10:04)
--- NOTE | 2019-02-20 10:37 | PDOC PROGRESS REPORT ---
Subjective-OB Progress Note for:: 02/20/19 Subjective: Pt doing well, FC recently removed, she has not been out of bed yet. PRBCs infusing. Denies concerns. Bleeding normal, regular diet, no flatus yet. Physical Exam (OB) Vital Signs: Temp Pulse Resp BP Pulse Ox 98.0 F 74 17 114/71 100 02/20/19 09:35 02/20/19 09:35 02/20/19 09:35 02/20/19 09:35 02/20/19 09:35 Intake & Output 02/19/19 02/20/19 02/21/19 06:59 06:59 06:59 Intake Total 300 Output Total 950 Balance -950 300 Weight 78.834 kg - Dressing Removed: No Incision: Dressing Closure Type: Sutures - Lochia Lochia Amount: Small 10-25 ml Lochia Color: Rubra/Red - Abdomen Description: Soft, Round Fundal Description: Firm Fundal Height: u/u - u/2 Objective-Diagnostic Laboratory: 02/20/19 06:41 02/19/19 02/19/19 02/19/19 15:20 15:20 21:20 WBC 12.1 H 21.3 H RBC 3.97 3.50 L Hgb 8.2 L 7.2 L Hct 26.6 L 23.5 L MCV 67 L 67 L MCH 20.6 L 20.7 L MCHC 30.6 L 30.7 L RDW 19.1 H 19.5 H Plt Count 300 290 Seg Neutrophils % Not Reportable Not Reportable Lymphocytes % Not Reportable Not Reportable Monocytes % Not Reportable Not Reportable Eosinophils % Not Reportable Not Reportable Basophils % Not Reportable Not Reportable Absolute Neutrophils Not Reportable Not Reportable Absolute Lymphocytes Not Reportable Not Reportable Absolute Monocytes Not Reportable Not Reportable Absolute Eosinophils Not Reportable Not Reportable Absolute Basophils Not Reportable Not Reportable Urine Color Urine Appearance Urine pH Ur Specific [place] Urine Protein Urine Glucose (UA) Urine Ketones Urine Blood Urine Nitrite Ur Leukocyte Esterase Urine WBC (Auto) Urine RBC (Auto) Blood Type AB POSITIVE Antibody Screen NEGATIVE 02/20/19 02/20/19 01:30 06:41 WBC 19.7 H RBC 3.07 L Hgb 6.2 L Hct 20.6 L MCV 67 L MCH 20.2 L MCHC 30.1 L RDW 19.1 H Plt Count 264 Seg Neutrophils % Lymphocytes % Monocytes % Eosinophils % Basophils % Absolute Neutrophils Absolute Lymphocytes Absolute Monocytes Absolute Eosinophils Absolute Basophils Urine Color STRAW Urine Appearance CLEAR Urine pH 6.0 Ur Specific [place] 1.011 Urine Protein NEGATIVE Urine Glucose (UA) >=500 H Urine Ketones NEGATIVE Urine Blood NEGATIVE Urine Nitrite NEGATIVE Ur Leukocyte Esterase NEGATIVE Urine WBC (Auto) 1 Urine RBC (Auto) 1 Blood Type Antibody Screen Assessment and Plan(PN) - Assessment and Plan (1) Anemia complicating , third trimester Is this a current diagnosis for this admission?: Yes (2) Breech presentation of fetus delivered Is this a current diagnosis for this admission?: Yes (3) History of classical section Is this a current diagnosis for this admission?: Yes - Time Spent with Patient Time with patient: Less than 15 minutes Medications reviewed and adjusted accordingly: Yes - Disposition Anticipated Discharge: Home Within: within 24 hours
[2019-02-20] MEDS: OXYCODONE-ACETAMINOPHEN 5-325 MG TABLET PO PRN ×2 (12:20→16:40)
[2019-02-20 22:03] LABS: HEMATOCRIT 26.1 % (36.0-47.0); MEAN CORPUSCULAR HEMOGLOBIN 23.4 pg (27.0-33.4); MEAN CORPUSCULAR HGB CONC 31.9 g/dL (32.0-36.0); PLATELET COUNT 253 10^3/uL (150-450); RED BLOOD COUNT 3.58 10^6/uL (3.72-5.28); RED CELL DISTRIBUTION WIDTH 22.1 % (11.5-14.0); WHITE BLOOD COUNT 20.7 10^3/uL (4.0-10.5)
[2019-02-20 22:14] LABS: HEMOGLOBIN 8.3 g/dL (12.0-15.5); MEAN CORPUSCULAR VOLUME 73 fl (80-97)
[2019-02-21] MEDS: OXYCODONE-ACETAMINOPHEN 5-325 MG TABLET PO PRN ×2 (00:02→09:04)
[2019-02-21 07:16] LABS: HEMATOCRIT 26.3 % (36.0-47.0); HEMOGLOBIN 8.4 g/dL (12.0-15.5); MEAN CORPUSCULAR HEMOGLOBIN 23.4 pg (27.0-33.4); MEAN CORPUSCULAR HGB CONC 31.8 g/dL (32.0-36.0); MEAN CORPUSCULAR VOLUME 74 fl (80-97); PLATELET COUNT 261 10^3/uL (150-450); RED BLOOD COUNT 3.58 10^6/uL (3.72-5.28); RED CELL DISTRIBUTION WIDTH 22.7 % (11.5-14.0); WHITE BLOOD COUNT 20.3 10^3/uL (4.0-10.5)
[2019-02-21 07:51] LABS: ABSOLUTE MONOCYTES # (MANUAL) 0.2 10^3/uL (0.1-1.4); BAND NEUTROPHILS % (MANUAL) 2 % (3-5); BASOPHILS % (MANUAL) 0 % (0-2); EOSINOPHILS % (MANUAL) 0 % (0-6); LYMPHOCYTES % (MANUAL) 10 % (13-45); MONOCYTES % (MANUAL) 1 % (3-13); SEGMENTED NEUTROPHILS % (MAN) 87 % (42-78); TOTAL CELLS COUNTED 100
[2019-02-21 07:52] LABS: ANISOCYTOSIS 3+; POLYCHROMASIA 1+
[2019-02-21 07:53] LABS: BURR CELLS SLIGHT; OVALOCYTES SLIGHT; PLATELET COMMENT ADEQUATE; POIKILOCYTOSIS SLIGHT
[2019-02-21] MEDS: DOCUSATE SODIUM 100 MG CAPSULE PO SCH ×2 (09:04→19:00)
[2019-02-21] MEDS: PRENATAL VITAMIN W DHA CAPSULE PO SCH (09:04)
--- NOTE | 2019-02-21 09:42 | PDOC PROGRESS REPORT ---
Addendum entered and electronically signed by GIANFRANCO DERAS CNM 02/21/19 09:46: Final Diagnosis Discharge Date: 02/21/19 - Final Diagnosis (1) Delivery by section using transverse incision of lower segment of uterus Is this a current diagnosis for this admission?: No (2) Gestational diabetes mellitus (GDM) Is this a current diagnosis for this admission?: Yes (3) Breech presentation of fetus delivered Is this a current diagnosis for this admission?: Yes (4) Blood transfusion during current hospitalisation Is this a current diagnosis for this admission?: Yes (5) Anemia complicating , third trimester Is this a current diagnosis for this admission?: Yes (6) History of classical section Is this a current diagnosis for this admission?: Yes Original Note: Subjective-OB Progress Note for:: 02/21/19 Subjective: Doing well, holding baby, bottle feeding, scant lochia, passing gas, eating well, baby not going home today, hsb at BS Physical Exam (OB) Vital Signs: Temp Pulse Resp BP Pulse Ox 98.5 F 78 16 124/84 100 02/21/19 08:43 02/21/19 08:43 02/21/19 08:43 02/21/19 08:43 02/21/19 08:43 Intake & Output 02/20/19 02/21/19 02/22/19 06:59 06:59 06:59 Intake Total 950 Output Total 950 800 Balance -950 150 Weight 78.834 kg - PIH/Pre-Eclampsia Clonus: Negative Headache: Present Epigastric Pain: No Visual Changes: No - Dressing Removed: No Incision: Dressing Closure Type: Sutures - Lochia Lochia Amount: Small 10-25 ml Lochia Color: Rubra/Red - Abdomen Description: Round Fundal Description: Firm Describe if Not Midline: refused fundal rub Fundal Height: u/u - u/2 Objective-Diagnostic Laboratory: 02/21/19 06:15 02/19/19 02/20/19 02/21/19 15:20 21:06 06:15 WBC 20.7 H 20.3 H RBC 3.58 L 3.58 L Hgb 8.3 L D 8.4 L Hct 26.1 L 26.3 L MCV 73 L D 74 L MCH 23.4 L 23.4 L MCHC 31.9 L 31.8 L RDW 22.1 H 22.7 H Plt Count 253 261 Seg Neutrophils % Not Reportable Lymphocytes % Not Reportable Monocytes % Not Reportable Eosinophils % Not Reportable Basophils % Not Reportable Absolute Neutrophils Not Reportable Absolute Lymphocytes Not Reportable Absolute Monocytes Not Reportable Absolute Eosinophils Not Reportable Absolute Basophils Not Reportable Blood Type AB POSITIVE Antibody Screen NEGATIVE Assessment and Plan(PN) - Assessment and Plan (1) Delivery by section using transverse incision of lower segment of uterus Is this a current diagnosis for this admission?: Yes (2) Gestational diabetes mellitus (GDM) Qualifiers: Gestational diabetes mellitus control: diet-controlled Trimester: second trimester Qualified Code(s): O24.410 - Gestational diabetes mellitus in , diet controlled Is this a current diagnosis for this admission?: Yes (3) Breech presentation of fetus delivered Is this a current diagnosis for this admission?: Yes - Time Spent with Patient Time with patient: Less than 15 minutes Medications reviewed and adjusted accordingly: Yes - Disposition Anticipated Discharge: Home Within: within 24 hours
[2019-02-21] MEDS: IBUPROFEN 800 MG TABLET PO SCH ×3 (12:30→23:56)
[2019-02-22] MEDS: IBUPROFEN 800 MG TABLET PO SCH ×2 (05:52→11:46)
[2019-02-22] MEDS: PRENATAL VITAMIN W DHA CAPSULE PO SCH (09:55)
[2019-02-22] MEDS: DOCUSATE SODIUM 100 MG CAPSULE PO SCH (09:55)
[2019-02-22 10:32] LABS: ABSOLUTE EOSINOPHILS # (AUTO) 0.3 10^3/uL (0.0-0.6); ABSOLUTE LYMPHOCYTES (AUTO) 3.3 10^3/uL (0.5-4.7); ABSOLUTE MONOCYTES (AUTO) 0.7 10^3/uL (0.1-1.4); ABSOLUTE NEUT (AUTO) 9.2 10^3/uL (1.7-8.2); BASOPHILS % (AUTO) 0.2 % (0-2); EOSINOPHILS % (AUTO) 1.9 % (0-6); HEMOGLOBIN 8.5 g/dL (12.0-15.5); LYMPHOCYTES % (AUTO) 24.6 % (13-45); MEAN CORPUSCULAR HEMOGLOBIN 23.4 pg (27.0-33.4); MEAN CORPUSCULAR HGB CONC 31.4 g/dL (32.0-36.0); MEAN CORPUSCULAR VOLUME 75 fl (80-97); MONOCYTES % (AUTO) 5.5 % (3-13); PLATELET COUNT 280 10^3/uL (150-450); RED BLOOD COUNT 3.62 10^6/uL (3.72-5.28); RED CELL DISTRIBUTION WIDTH 23.2 % (11.5-14.0); SEGMENTED NEUTROPHILS % (AUTO) 67.8 % (42-78); TOTAL CELLS COUNTED % (AUTO) 100 %; WHITE BLOOD COUNT 13.5 10^3/uL (4.0-10.5)
--- NOTE | 2019-02-22 10:36 | PDOC PROGRESS REPORT ---
Subjective-OB Progress Note for:: 02/22/19 Subjective: discussed increased WBC count. pt states she does not know how long her water had been broken prior to delivery. denies cough, pain anywhere. states she felt like she was getting sick before she was admitted with chills, now resolved Physical Exam (OB) Vital Signs: Temp Pulse Resp BP Pulse Ox 98.0 F 72 16 97/57 L 99 02/22/19 07:23 02/22/19 07:23 02/22/19 07:23 02/22/19 07:23 02/22/19 07:23 Intake & Output 02/21/19 02/22/19 02/23/19 06:59 06:59 06:59 Intake Total 950 1000 Output Total 800 Balance 150 1000 - Dressing Removed: No - optsite, clean, dry, intact Incision: Dressing - Abdomen Description: Soft, Round Hernia Present: No Fundal Description: Firm Describe if Not Midline: refused fundal rub Fundal Height: 1/u - 2/u > 4/u*- Describe: refused fundal rubs - Abdominal Inspection: Normal Distension: No distension Tenderness: Nontender Assessment and Plan(PN) - Time Spent with Patient Medications reviewed and adjusted accordingly: Yes - Disposition Anticipated Discharge: Home
--- NOTE | 2019-02-22 10:42 | PDOC DISCHARGE SUMMARY ---
Final Diagnosis Discharge Date: 02/22/19 - Final Diagnosis (1) delivery indicated due to breech presentation Is this a current diagnosis for this admission?: Yes (2) Anemia complicating , third trimester Is this a current diagnosis for this admission?: Yes (3) Blood transfusion during current hospitalisation Is this a current diagnosis for this admission?: Yes (4) Breech presentation of fetus delivered Is this a current diagnosis for this admission?: Yes (5) History of classical section Is this a current diagnosis for this admission?: Yes Discharge Data - Discharge Medication Prescriptions: Ferrous Sulfate [Feosol 325 mg Tablet] 325 mg PO DAILY #30 tab Ibuprofen [Motrin 800 mg Tablet] 800 mg PO Q8HP PRN #90 tablet PRN Reason: Oxycodone HCl/Acetaminophen [Percocet 5-325 mg Tablet] 1 tab PO Q4HP PRN #30 tablet PRN Reason: Home Medications: Vit/Iron Fum/Folic AC [ Tablet] 1 each PO DAILY 06/12/17 Docusate Sodium [Colace 100 mg Capsule] 100 mg PO BID #60 capsule 06/14/17 Ferrous Sulfate [Feosol 325 mg Tablet] 325 mg PO DAILY #30 tab 02/22/19 Ibuprofen [Motrin 800 mg Tablet] 800 mg PO Q8HP PRN #90 tablet 02/22/19 Oxycodone HCl/Acetaminophen [Percocet 5-325 mg Tablet] 1 tab PO Q4HP PRN #30 tablet 02/22/19 Reason(s) for Admission: PROM Procedures: NST Intrapartum Procedure(s): : Classical - Diagnosis Test Laboratory: Temp Pulse Resp BP Pulse Ox 98.0 F 72 16 97/57 L 99 02/22/19 07:23 02/22/19 07:23 02/22/19 07:23 02/22/19 07:23 02/22/19 07:23 02/19/19 02/19/19 02/20/19 15:20 21:20 01:30 RBC 3.97 3.50 L Hgb 8.2 L 7.2 L Hct 26.6 L 23.5 L Urine Opiates Screen NEGATIVE 02/20/19 02/20/19 02/21/19 06:41 21:06 06:15 RBC 3.07 L 3.58 L 3.58 L Hgb 6.2 L 8.3 L D 8.4 L Hct 20.6 L 26.1 L 26.3 L Urine Opiates Screen 02/22/19 10:20 RBC 3.62 L Hgb 8.5 L Hct 27.0 L Urine Opiates Screen - Discharge information/Instructions Discharge Activity: Balance Activity w/Rest, Pelvic Rest, No tub bath Discharge Diet: Regular Disposition: HOME, SELF-CARE Follow up with: [facility] in: 1, Weeks
[2019-02-22 11:19] VITALS: BP 121/75
== END 2019-02-22 12:20 | disposition home or self-care (01) | DRG 787 ==
LOC: LC 14:25 → LR 14:30 → 2S 20:02
PROVIDERS: ADMIT Obstetrics & Gynecology; ATTEND Obstetrics & Gynecology
PROC: 10D00Z1 Extraction of Products of Conception, Low, Open Approach (ICD-10-PCS; principal; 2019-02-19)
PROC: 30233N1 Transfusion of Nonautologous Red Blood Cells into Peripheral Vein, Percutaneous Approach (ICD-10-PCS; 2019-02-20)
DX: O32.8XX0 Maternal care for other malpresentation of fetus, not applicable or unspecified (principal); O41.03X0 Oligohydramnios, third trimester, not applicable or unspecified; O99.02 Anemia complicating childbirth; D64.9 Anemia, unspecified; O24.420 Gestational diabetes mellitus in childbirth, diet controlled; Z79.899 Other long term (current) drug therapy; Z3A.40 40 weeks gestation of pregnancy; Z37.0 Single live birth
CPT/HCPCS: 1961; 36415; 36430; 80307; 81001; 82962; 85025; 85027; 86592; 86850; 86900; 86901; 86920; 94799; J0131; J0330; J0690; J1100; J1170; J1885; J2250; J2370; J2405; J2590; J2704; J2765; J3010; J3490; J7060; P9016